=== PATIENT | female | born 1990 | race Caucasian/White ===

== ENCOUNTER 2016-11-11 08:46 | Outpatient (CLI) | payer MEDICAID, OTHER ==
[~2016-11-11 08:46] MED LIST: ACET1TAB40 PO; IBUP200C11
--- NOTE | 2016-11-11 10:52 | TRIAGE ---
OB Triage Datetime Report Generated by CPN: 11/11/2016 10:51 Datetime: 11/11/2016 10:48 Stage of : OB Triage Maternal Assessment Level of Consciousness: Fully Conscious DTR's/Clonus: DTRs 1+ Headache: Denies Breath Sounds, Left: Clear and Equal Breath Sounds, Right: Clear and Equal RUQ Epigastric Pain: Denies Labor Evaluation Frequency: NONE Monitor Mode: External Resting Tone [place]: Relaxed Heart Rate FHR Baseline Rate: 135 Monitor Mode: External US Variability: Moderate 6-25 bpm Accelerations: 15X15 Decelerations: None Category: Category I Pain Assessment Pain Scale: 0 Pain Presence: None/Denies Pain Type: N/A Pain Goal: 3 Vaginal Exam Membrane Status: Intact Datetime: 11/11/2016 09:59 EGA: 27.3 Datetime: 11/11/2016 09:57 Stage of : OB Triage Maternal Assessment Level of Consciousness: Fully Conscious DTR's/Clonus: DTRs 1+ Headache: Denies Breath Sounds, Left: Clear and Equal Breath Sounds, Right: Clear and Equal RUQ Epigastric Pain: Denies Labor Evaluation Frequency: NONE Monitor Mode: External Resting Tone [place]: Relaxed Heart Rate FHR Baseline Rate: 135 Monitor Mode: External US Variability: Moderate 6-25 bpm Accelerations: 15X15 Decelerations: None Category: Category I Pain Assessment Pain Scale: 0 Pain Presence: None/Denies Pain Type: N/A Pain Goal: 3 Vaginal Exam Membrane Status: Intact Datetime: 11/11/2016 09:22 Maternal Assessment Level of Consciousness: Fully Conscious DTR's/Clonus: DTRs 1+ Headache: Denies Blurred Vision: No Respiratory Effort: Unlabored Breath Sounds, Left: Clear and Equal Breath Sounds, Right: Clear and Equal RUQ Epigastric Pain: Denies Facial Edema: None Labor Evaluation Frequency: NONE Monitor Mode: External Resting Tone [place]: Relaxed Heart Rate FHR Baseline Rate: 135 Monitor Mode: External US Variability: Moderate 6-25 bpm Accelerations: 15X15 Decelerations: None Category: Category I Pain Assessment Pain Scale: 0 Pain Presence: None/Denies Pain Type: N/A Pain Goal: 3 Pain Assessment Comments: PT DENIES FEELING PAIN AT THIS TIME AND STATES FEELING BETTER Vaginal Exam Membrane Status: Intact Datetime: 11/11/2016 09:00 Assessment Type: Triage Maternal Assessment Level of Consciousness: Fully Conscious DTR's/Clonus: DTRs 2+; No Clonus Headache: Denies Blurred Vision: No Respiratory Effort: Unlabored; Regular Rhythm; Equal Expansion Breath Sounds, Left: Clear and Equal Breath Sounds, Right: Clear and Equal Nausea/Vomiting: Denies RUQ Epigastric Pain: Denies Lower Extremities Edema: None Degree: None Upper Extremities Edema: None Degree: None Facial Edema: None Fall Risk Assessment History of Falling: (0) No Secondary Diagnosis: (0) No Ambulatory Aid: (0) Bedrest/Nurse Assist IV Therapy: (0) No Gait: (0) Normal/Bedrest/Immobile Mental Status: (0) Oriented to Own Ability Fall Score: 0 Fall Risk Score Definition: No Risk: No action required Datetime: 11/11/2016 08:45 Time of Arrival: 11/11/2016 08:45 Arrived By: Wheelchair Arrived From: Home Chief Complaint: PT CAME IN C/O ABD PAIN AFTER HAVING AN ARGUMENT WITH THE FOB Movement: Present Contractions: Denies/Absent Rupture of Membranes: Denies Vaginal Bleeding: None Vaginal Discharge: Denies Recent Sexual Intercouse: Denies Abdominal Trauma: Not Applicable Patient Complaints: Other Additional Patient Complaints: NONE Time Provider Notified: 11/11/2016 09:22 Provider Notified: MARY Initial Plan: MONITOR, CX LENGHT AND PAYAM
--- NOTE | 2016-11-11 10:55 | CONS ---
Date/Time of Note Date/Time of Note DATE: 11/11/16 TIME: 10:49 Consultation Date/Type/Reason Admit Date/Time November 11, 2016 OB triage consult Reason for Consultation This patient is a 26 years old 2 1 para 0 whose estimated date of confinement is February 07, 2017 which makes her 27 weeks and 2 days. She came to triage service complaining of abdominal pain and apparently had some argument with her male friend she has no other complaint On examination she is a well-developed well-nourished lady in with . On examination no true abdominal pain heart tone is normal no CVA tenderness bowel sounds are normal Her vital signs appears to be normal with blood pressure of 110/63 pulse rate of 110 respiration 19 and temperature 98.6 The urinalysis was performed and the urine was clear no blood or infection Constitutional: No chills, No diaphoresis, No disoriented, No febrile, No improved, No no complaints, No other, No poor po, No requiring IVF, No requiring O2 Eyes: No discharge, No no complaints, No other, No pain, No redness, No visual change ENT: No bleeding, No congestion, No discharge, No dysphagia, No no complaints, No other, No pain, No sore throat Respiratory: No cough, No no complaints, No other, No pain, No pleuritic pain, No shortness of breath, No sputum, No wheezing Cardiovascular: No chest pain, No edema, No lightheadedness, No no complaints, No orthopenea, No other, No palpitations, No paroxysmal nocturnal dyspnea Gastrointestinal: other (No abdominal pain no CVA tenderness), No blood, No constipation, No decreased appetite, No diarrhea, No flatus, No nausea, No no complaints, No pain, No passing stool, No vomiting Genitourinary: other (No dysuria), No bleeding, No discharge, No dysuria, No flank pain, No hematuria, No no complaints Musculoskeletal: No back pain, No bone/joint pain, No neck pain, No no complaints, No other, No restricted range of motion, No swelling Skin: No bruising, No erythema, No laceration, No no complaints, No other, No pruritis, No rash, No skin lesions Neurologic: No confusion, No dizziness, No focal-weakness, No headache, No no complaints, No other, No seizure, No syncope Endocrine: No dry skin, No no complaints, No other, No polydypsia, No polyuria , No temp intolerance Additional Comments With all of these negative findings patient was reassured and was discharged home to be seen by her director of media soon. Asked to return to the clinic if any further pain bleeding or contractions or any other abnormal condition KERMIT HERNANDEZ MD November 11, 2016 10:55
== END 2016-11-11 10:48 | disposition home or self-care (01) ==
LOC: OBT 08:46 → L-D 08:47 → OBT 10:48
DX: O26.892 Other specified pregnancy related conditions, second trimester (principal); R10.9 Unspecified abdominal pain; Z3A.27 27 weeks gestation of pregnancy
CPT/HCPCS: G0463